=== PATIENT | male | born 1950 ===

== ENCOUNTER → 2017-12-05 18:03 | Outpatient (CLI) | payer OTHER ==
[~2017-12-05 18:03] MED LIST: EXFORGE 5-320 M1 TAB PO; TENEX1 MG PO
== END | disposition home or self-care (01) ==
LOC: LAB 18:03
DX: R19.00 Intra-abdominal and pelvic swelling, mass and lump, unspecified site (principal)

== ENCOUNTER 2018-06-30 18:04 | Emergency (ER) | payer OTHER ==
[~2018-06-30] VITALS: Ht 175.3 cm; Wt 91.6 kg
[2018-06-30] MEDS ORDERED: TAMS0.4C PO (18:23)
[2018-06-30] MEDS ORDERED: LIPITOR20 MG PO (18:23)
[2018-06-30] MEDS ORDERED: CARVEDILOL25 MG PO (18:24)
[2018-06-30] MEDS ORDERED: DOXAZOSIN MESYLA2 MG PO (18:24)
[2018-06-30] MEDS ORDERED: NORVASC10 MG PO (18:24)
== END 2018-06-30 21:25 | disposition home or self-care (01) ==
LOC: ER 18:04
DX: B34.9 Viral infection, unspecified (principal)

== ENCOUNTER 2020-10-31 13:03 | Outpatient (CLI) | payer OTHER ==
[~2020-10-31 13:03] MED LIST changes: +CARVEDILOL25 MG PO; +DOXAZOSIN MESYLA2 MG PO; +LIPITOR20 MG PO; +NORVASC10 MG PO; +TAMS0.4C PO
== END 2020-10-31 13:05 | disposition home or self-care (01) ==
LOC: TOM 13:03
DX: M48.062 Spinal stenosis, lumbar region with neurogenic claudication (principal); M54.16 Radiculopathy, lumbar region; M48.8X6 Other specified spondylopathies, lumbar region

== ENCOUNTER 2020-10-31 14:15 | Outpatient (CLI) | payer OTHER | END 2020-10-31 14:16 | disposition home or self-care (01) | LOC: NUCLEAR 14:15 | PROVIDERS: ATTEND Orthopaedic Surgery | DX: M85.89 Other specified disorders of bone density and structure, multiple sites (principal); M54.16 Radiculopathy, lumbar region; M48.05 Spinal stenosis, thoracolumbar region ==

== ENCOUNTER → 2021-01-11 | Outpatient (CLI) | payer OTHER | END | disposition home or self-care (01) | LOC: TOM 10-21 12:45 → NUCLEAR 10-21 15:00 → RAD 14:19 | DX: M48.06 Spinal stenosis, lumbar region (principal); M54.16 Radiculopathy, lumbar region ==

== ENCOUNTER 2021-11-21 07:12 | Outpatient (CLI) | payer OTHER | END 2021-11-21 07:28 | disposition home or self-care (01) | LOC: MRI 07:12 | PROVIDERS: ATTEND Orthopaedic Surgery | DX: M48.06 Spinal stenosis, lumbar region (principal); M54.16 Radiculopathy, lumbar region; M50.10 Cervical disc disorder with radiculopathy, unspecified cervical region | CPT/HCPCS: 72148 ==

== ENCOUNTER 2022-10-09 07:16 | Outpatient (CLI) | payer OTHER | END 2022-10-09 07:32 | disposition home or self-care (01) | LOC: MRI 07:16 | PROVIDERS: ATTEND Orthopaedic Surgery | DX: M25.512 Pain in left shoulder (principal); M50.10 Cervical disc disorder with radiculopathy, unspecified cervical region; M50.00 Cervical disc disorder with myelopathy, unspecified cervical region | CPT/HCPCS: 72141; 73218 ==

== ENCOUNTER 2022-12-20 07:12 | Outpatient (CLI) | payer OTHER | END 2022-12-20 07:26 | disposition home or self-care (01) | LOC: SONOGRAMA 07:12 | PROVIDERS: ATTEND Obstetrics & Gynecology | DX: R10.9 Unspecified abdominal pain (principal) ==